=== PATIENT | female | born 1940 | race Caucasian/White ===

== ENCOUNTER 2017-01-05 13:56 | Outpatient (CLI) ==
--- NOTE | 2017-01-05 15:38 | CT ---
EXAM: CT THORAX HISTORY: Lung nodule. TECHNIQUE: CT thorax within intravenous contrast. 5-mm axial sections. Coronal and sagittal re-for mations. COMPARISON: 06/26/2016 FINDINGS: The heart size is within normal limits. Trace pericardial effusion. A few nonspecific scattered me diastinal and hilar lymph nodes, some which are calcified. Lungs are mildly hyperinflated. There are a few scattered pulmonary nodules bilaterally all of whic h appear stable and some are calcified consistent with benign granulomas. The largest nodule locate d in the right lower lobe at 0.5 cm has no definite calcification. Bilateral discoid consolidations in the anterior cardiophrenic angles are grossly stable possibly related to chronic atelectasis and scarring. No pleural fluid or vascular congestion. No acute bony abnormality. There is suggestion of mild pectus deformity leading to mild mass effect on the anterior heart border. IMPRESSION: 1. There are a few scattered bilateral nodules some which have definite benign character and at [address] one on the right is indeterminate although all of these levels are stable. Consider follow-up CT in 6 months. 2. Discoid consolidations anterior cardiophrenic angles are stable possibly related to scarring and / or atelectasis. 3. Lungs are mildly hyperinflated.
== END 2017-01-05 13:57 | disposition home or self-care (01) ==
LOC: RAD 13:56
PROVIDERS: ATTEND Internal Medicine Pulmonary Disease
DX: R91.8 Other nonspecific abnormal finding of lung field (principal)

== ENCOUNTER 2018-01-08 09:46 | Outpatient (CLI) ==
--- NOTE | 2018-01-08 11:55 | CT ---
Exam: CT of the chest without intravenous contrast. Comparison: 01/05/2017. Reason for exam: Follow-up nodule. FINDINGS: Image interpretation is limited by the lack of intravenous contrast administration. No pneumothorax. Patchy airspace opacities are seen in both anterior lung bases likely atelectasis. The aorta is normal in course and caliber. The heart is not enlarged. There is a tiny pericardial effusion. Similar appearing sub-centimeter nodules (measuring approximately 5 mm) are seen in the right middle and right lower lobes. Findings do not appear significantly changed when compared to the previous ex am. No new parenchymal nodularity is seen. The gallbladder has been removed. No acute fracture or malalignment is seen in the thoracic spine. Degenerative disease is seen with anterior osteophyte formation. Impression: 1. Sub centimeter nodules in the lung parenchyma that do not appear significantly changed when compar ed to the examination performed on 01/05/2017. Recommend follow up imaging and 12 months to document stability. 2. Discoid consolidations in the anterior lung bases. Imaging findings are most likely scarring or atelectasis.
== END 2018-01-08 09:47 | disposition home or self-care (01) ==
LOC: RAD 09:46
PROVIDERS: ATTEND Nurse Practitioner Family
DX: Z12.31 Encounter for screening mammogram for malignant neoplasm of breast (principal); R91.8 Other nonspecific abnormal finding of lung field
CPT/HCPCS: 77067

== ENCOUNTER 2019-01-16 12:56 | Outpatient (CLI) ==
--- NOTE | 2019-01-17 10:43 | MAMMO ---
EXAM: Bilateral digital screening mammogram (2-D and 3-D) History: Screening Comparison: Bilateral mammogram 01/08/2018 Findings: MLO and CC views of bilateral breasts demonstrate scattered fibroglandular breast parenchy ma. CAD was reviewed by the radiologist. Tomosynthesis was performed. Stable benign bilateral j[address] st calcifications. There are no dominant masses, no suspicious microcalcifications and no architectu ral distortions Impression: Benign stable mammogram. Recommend followup routine screening mammography in 1 year. BIRADS 2, benign
== END 2019-01-16 12:57 | disposition home or self-care (01) ==
LOC: RAD 12:56
PROVIDERS: ATTEND Family Medicine
DX: Z12.31 Encounter for screening mammogram for malignant neoplasm of breast (principal)